=== PATIENT | female | born 1940 | race Caucasian/White ===

== ENCOUNTER → 2017-12-15 | Outpatient (CLI) | payer MEDICARE ==
[~2017-12-15] MED LIST: ASPI81CH PO; ATOR40TA PO; BUPR100 PO; CITA20 PO; HYDCHL25 PO; LEVSOD25 PO; LISHYD2025 PO; METF500 PO; Mobic15 MG PO; POTA10T PO; TOLT2 PO; TOPI25 PO
[2017-12-15 17:57] LABS: Protein, Urine Random 21.6 mg/dL (0.0-11.9)
== END | disposition home or self-care (01) ==
LOC: LAB 17:32 → LAB FUT 12-14 17:55
PROVIDERS: Internal Medicine
DX: N18.2 Chronic kidney disease, stage 2 (mild) (principal); R80.9 Proteinuria, unspecified
CPT/HCPCS: 82570; 84156

== ENCOUNTER → 2018-03-11 | Outpatient (CLI) | payer MEDICARE | END | disposition home or self-care (01) | LOC: PLD 08:13 → LAB SHORT 08:13 | DX: C44.619 Basal cell carcinoma of skin of left upper limb, including shoulder (principal); D04.62 Carcinoma in situ of skin of left upper limb, including shoulder | CPT/HCPCS: 88305 ==

== ENCOUNTER 2018-04-18 17:54 | Emergency (ER) | payer MEDICARE ==
[~2018-04-18] VITALS: Ht 152.4 cm; Wt 90.7 kg
[2018-04-18] MEDS ORDERED: CYAN1000I IM (18:35)
[2018-04-18] MEDS ORDERED: TOPI50 PO (18:47)
[2018-04-18] MEDS ORDERED: LISI20 PO (18:49)
== END 2018-04-18 19:42 | disposition home or self-care (01) ==
LOC: ER 17:54
DX: R94.31 Abnormal electrocardiogram [ECG] [EKG] (principal); E11.40 Type 2 diabetes mellitus with diabetic neuropathy, unspecified; I10 Essential (primary) hypertension; Z88.0 Allergy status to penicillin; Z79.899 Other long term (current) drug therapy; Z79.84 Long term (current) use of oral hypoglycemic drugs
CPT/HCPCS: 93005; 93010; 99283-25

== ENCOUNTER 2018-06-20 17:39 | Emergency (ER) | payer MEDICARE ==
[~2018-06-20] VITALS: Ht 152.4 cm; Wt 86.2 kg
[~2018-06-20 17:39] MED LIST changes: +CYAN1000I IM; -LEVSOD25 PO; +LEVSOD50 PO; +LISI20 PO; +TOPI50 PO
[2018-06-20 18:22] LABS: BASOPHILS ABSOLUTE AUTO 0.06 K/mm3 (0.00-0.23); BASOPHILS PERCENT AUTO 1 % (0-2); EOSINOPHILS ABSOLUTE AUTO 0.25 K/mm3 (0.00-0.68); EOSINOPHILS PERCENT AUTO 3 % (0-6); Hematocrit 42.7 % (33.0-51.0); Hemoglobin 14.2 g/dL (11.5-16.0); IMMATURE GRAN ABSOLUTE AUTO 0.02 K/mm3 (0.00-0.10); IMMATURE GRAN PERCENT AUTO 0 % (0-1); LYMPHOCYTES ABSOLUTE AUTO 1.46 K/mm3 (0.84-5.20); LYMPHOCYTES PERCENT AUTO 19 % (21-46); MONOCYTES ABSOLUTE AUTO 0.55 K/mm3 (0.16-1.47); MONOCYTES PERCENT AUTO 7 % (4-13); Mean Corpuscular HGB 30.9 pg (26.0-34.0); Mean Corpuscular HGB Conc 33.3 g/dL (31.5-36.5); Mean Corpuscular Volume 93 fL (80-100); Mean Platelet Volume 9.2 fL (9.1-12.4); NEUTROPHILS ABSOLUTE AUTO 5.33 K/mm3 (1.96-9.15); NEUTROPHILS PERCENT AUTO 69 % (41-73); Platelet Count 304 K/mm3 (150-400); RDW Coefficient Variation 12.9 % (11.7-14.2); Red Blood Cell Count 4.59 M/mm3 (3.80-5.20); White Blood Cell Count 7.67 K/mm3 (4.00-11.30)
[2018-06-20 18:46] LABS: Albumin, Blood 3.5 g/dL (3.4-5.0); Albumin/Globulin Ratio 1.1 (0.8-1.8); Bilirubin, Total 0.5 mg/dL (0.1-1.0); Bun/Creatinine Ratio 17.3 (12.0-20.0); Creatine Kinase MB 7.8 ng/mL (0.0-3.6); Creatine Kinase MB Index 3.2 (0.0-4.0); Creatinine, Blood 1.04 mg/dL (0.40-1.00); Globulin, Blood 3.2 g/dL (2.2-4.0); Potassium, Blood 3.5 mmol/L (3.5-5.5); Total Protein, Blood 6.7 g/dL (6.4-8.2)
[2018-06-20 19:55] LABS: Source, Urine Clean Catch
[2018-06-20 20:01] LABS: Bilirubin, Urine Neg (Neg); Blood, Urine Neg (Neg); Glucose Qualitative, Urine Neg (Neg); Ketones, Urine Neg (Neg); Leukocyte Esterase, Urine 2+ (Neg); Nitrite, Urine Neg (Neg); Protein, Urine Neg (Neg); Urobilinogen, Urine NORM (Normal)
[2018-06-20 20:21] LABS: Appearance, Urine Hazy (Clear); Color, Urine Yellow (P-Yellow)
[2018-06-20 20:23] LABS: Bacteria Mod /hpf; Red Blood Cells, Urine Not Seen /hpf (0-2); Squamous Epithelial Cells Mod /hpf (Few)
[2018-06-20] MEDS ORDERED: Macrobid 100 M100 MG PO (21:09)
== END 2018-06-20 21:45 | disposition home or self-care (01) ==
LOC: ER 17:39
PROVIDERS: Emergency Medicine
DX: N39.0 Urinary tract infection, site not specified (principal); W18.30XA Fall on same level, unspecified, initial encounter; Z88.0 Allergy status to penicillin; Z79.899 Other long term (current) drug therapy; E11.40 Type 2 diabetes mellitus with diabetic neuropathy, unspecified; I10 Essential (primary) hypertension
CPT/HCPCS: 36415; 80053; 81001; 82550; 82553; 85025; 87086; 93005; 93010; 96360; 99284-25; J7030

== ENCOUNTER 2018-06-25 16:28 | Observation (INO) | payer MEDICARE ==
[~2018-06-25] VITALS: Ht 152.4 cm; Wt 85.9 kg
[~2018-06-25 16:28] MED LIST changes: +Macrobid 100 M100 MG PO
[2018-06-25 17:07] LABS: BASOPHILS ABSOLUTE AUTO 0.06 K/mm3 (0.00-0.23); BASOPHILS PERCENT AUTO 1 % (0-2); EOSINOPHILS ABSOLUTE AUTO 0.09 K/mm3 (0.00-0.68); EOSINOPHILS PERCENT AUTO 1 % (0-6); Hematocrit 43.6 % (33.0-51.0); Hemoglobin 14.3 g/dL (11.5-16.0); IMMATURE GRAN ABSOLUTE AUTO 0.03 K/mm3 (0.00-0.10); IMMATURE GRAN PERCENT AUTO 0 % (0-1); LYMPHOCYTES ABSOLUTE AUTO 1.41 K/mm3 (0.84-5.20); LYMPHOCYTES PERCENT AUTO 16 % (21-46); MONOCYTES ABSOLUTE AUTO 0.69 K/mm3 (0.16-1.47); MONOCYTES PERCENT AUTO 8 % (4-13); Mean Corpuscular HGB 30.2 pg (26.0-34.0); Mean Corpuscular HGB Conc 32.8 g/dL (31.5-36.5); Mean Corpuscular Volume 92 fL (80-100); Mean Platelet Volume 9.4 fL (9.1-12.4); NEUTROPHILS ABSOLUTE AUTO 6.67 K/mm3 (1.96-9.15); NEUTROPHILS PERCENT AUTO 75 % (41-73); Platelet Count 286 K/mm3 (150-400); RDW Coefficient Variation 13.1 % (11.7-14.2); RDW Standard Deviation 44.5 fL (35.1-46.3); Red Blood Cell Count 4.73 M/mm3 (3.80-5.20); White Blood Cell Count 8.95 K/mm3 (4.00-11.30)
[2018-06-25 17:27] LABS: Albumin, Blood 3.9 g/dL (3.4-5.0); Albumin/Globulin Ratio 1.1 (0.8-1.8); Bilirubin, Total 0.5 mg/dL (0.1-1.0); Bun/Creatinine Ratio 16.2 (12.0-20.0); Calcium, Blood 9.2 mg/dL (8.5-10.1); Creatinine, Blood 1.17 mg/dL (0.40-1.00); Globulin, Blood 3.4 g/dL (2.2-4.0); Potassium, Blood 3.3 mmol/L (3.5-5.5); Total Protein, Blood 7.3 g/dL (6.4-8.2)
[2018-06-25] MEDS ORDERED: METF500C PO (18:16)
[2018-06-25] MEDS ORDERED: Wellbutrin Sr200 MG PO (18:16)
[2018-06-25] MEDS ORDERED: CITA20 PO (18:17)
[2018-06-25] MEDS ORDERED: Cyclobenzaprine5 MG PO (18:17)
[2018-06-25] MEDS ORDERED: Bupropion Xl150 MG PO (18:17)
[2018-06-25 23:56] LABS: Source, Urine Catheter
[2018-06-25 23:58] LABS: Blood, Urine 1+ (Neg); Glucose Qualitative, Urine Neg (Neg); Ketones, Urine 1+ (Neg); Leukocyte Esterase, Urine 2+ (Neg); Nitrite, Urine Neg (Neg); Protein, Urine 1+ (Neg); Urobilinogen, Urine 1+ (Normal)
[2018-06-25 23:59] LABS: Appearance, Urine Hazy (Clear); Bilirubin, Urine 1+ (Neg); Color, Urine Amber (P-Yellow)
[2018-06-26 00:07] LABS: Bacteria Mod /hpf; Mucus Light (0-Heavy); Squamous Epithelial Cells Few /hpf (Few)
--- NOTE | 2018-06-26 04:48 | NUR ---
*SHIFT SUMMARY* PATIENT ARRIVED TO ROOM FROM ER VIA STRETCHER. PATIENT IS ALERT AND ORIENTED TO TIME AND PLACE. ASSISTED PATIENT TO BSC TO URINATE. PT WAS A HEAVY TWO ASSIST, SHE IS VERY WEAK AND HAS A HARD TIME WITH LITTLE STEPS. BEDPAN IS BE SAFIER UNTIL PT IS ABLE TO WORK WITH PATIENT. PATIENT SLEPT WITH CPAP THROUGHOUT NIGHT AND STATES SHE SLEPT VERY WELL. PATIENT USES CALL LIGHT APPROPRITELY. CLEAN CATCH URINE SAMPLE SENT TO LAB. MED REC NOT COMPLETED, PATIENT WAS NOT SURE OF WHAT MEDICATIONS SHE TAKES AND DAUGHTER HAS MEDICATION LIST. NO NEW CHANGES TO PATIENTS STATUS. CALL LIGHT WITHIN REACH, BED LOWERED AND LOCKED.
[2018-06-26 05:30] LABS: Hemoglobin 12.1 g/dL (11.5-16.0); Mean Corpuscular HGB Conc 32.7 g/dL (31.5-36.5); Mean Corpuscular Volume 92 fL (80-100); Mean Platelet Volume 9.4 fL (9.1-12.4); Platelet Count 228 K/mm3 (150-400); RDW Coefficient Variation 13.1 % (11.7-14.2); RDW Standard Deviation 44.2 fL (35.1-46.3); Red Blood Cell Count 4.04 M/mm3 (3.80-5.20); White Blood Cell Count 8.07 K/mm3 (4.00-11.30)
[2018-06-26 05:46] LABS: Calcium, Blood 8.5 mg/dL (8.5-10.1); Creatinine, Blood 1.07 mg/dL (0.40-1.00); Potassium, Blood 3.5 mmol/L (3.5-5.5)
--- NOTE | 2018-06-26 18:31 | NUR ---
SHIFT SUMMARY PT HAS HAD NO ACUTE CHANGES THIS SHIFT, NO COMPLAINTS OF ANY KIND. PT HAS BEEN UP TO CHAIR T/O SHIFT, WILL CONT TO MONITOR UNTIL REPORT GIVEN TO TAYLOR RN.
--- NOTE | 2018-06-27 05:23 | NUR ---
SHIFT SUMMARY PT A&OX3. DENIES PAIN, N/V, AND SOB. X2 ASSIST WITH FWW TO BSC. WEAK AND UNSTEADY GAIT. CPAP WITH O2 2L ON AT BEDTIME. IVF NS RUNNING. BED ALARM ON FOR SAFETY. CALL LIGHT IN REACH. WILL CONTINUE TO MONITOR.
[2018-06-27 05:44] LABS: Bun/Creatinine Ratio 13.5 (12.0-20.0); Calcium, Blood 8.2 mg/dL (8.5-10.1); Creatinine, Blood 0.97 mg/dL (0.40-1.00)
--- NOTE | 2018-06-27 18:18 | NUR ---
SHIFT SUMMARY PT WORKED WITH OCCUPATIONAL AND PHYSICAL THERAPY THIS SHIFT. MRI WAS DONE THIS AFTERNOON AND WAITING FOR RESULTS. PT HAS HAD NO COMPLAINTS. UP TO BSC 1-2 ASSIST WITH GAIT BELT AND FWW. PT HAS HAD MEALS IN CHAIR. NO C/O PAIN THIS SHIFT. PT UP IN CHAIR, EATING AT THIS TIME. CHAIR ALARM IN PLACE. CALL LIGHT IN REACH. WILL CONTINUE TO MONITOR AND REPORT TO ONCOMING RN.
--- NOTE | 2018-06-28 04:24 | NUR ---
SHIFT SUMMARY PT ALERT AND ORIENTED BUT FORGETFUL AT TIMES. DENIES PAIN, N/V, AND SOB. X1 ASSIST WITH FWW TO THE BSC. WEAK GAIT AND NEED LOTS OF CUES WHEN GETTING TO THE BSC AND BACK TO BED. CPAP ON WITH O2 2L AT BEDTIME. CONT BIOX IN PLACE. SLEPT WELL. WILL CONTINUE TO MONITOR. BED ALARM ON FOR SAFETY.
[2018-06-28] MEDS ORDERED: DOCU100 PO (14:43)
[2018-06-28] MEDS ORDERED: TRAM50 PO (14:43)
--- NOTE | 2018-06-28 16:21 | NUR ---
REVIEW D'C W/PATIENT AND CAREGIVER. AWARE TO CHIEF OPERATOR RX AT [facility] AND HAS HARD COPY TO FILL. AWARE TO MAKE APPT W/DR. HARDY AND DR. PAYNE. ADVISED THAT DR. PAYNE CAN EXPLAIN MRI THAT WAS DONE YESTERDAY AND IF SHE CAN DO SURGERY TO CORRECT ANYTHING. AWARE CHAIR CAR DRIVER WILL CALL AND LET THEM KNOW WHICH [facility] WILL SEE THEM. ANSWER ALL QUESTIONS. ASSISTED IN DRESSING. IN W/C. RN TAKES PATIENT DOWN TO CAR WITH CAREGIVER.
== END 2018-06-28 16:14 | disposition home or self-care (01) ==
LOC: ER 16:28 → MEDS 20:42
PROVIDERS: Hospitalist; Nurse Practitioner Acute Care; Physician Assistant; ADMIT Internal Medicine
DX: M47.816 Spondylosis without myelopathy or radiculopathy, lumbar region (principal); M48.56XA Collapsed vertebra, not elsewhere classified, lumbar region, initial encounter for fracture; M48.05 Spinal stenosis, thoracolumbar region; M48.061 Spinal stenosis, lumbar region without neurogenic claudication; E11.9 Type 2 diabetes mellitus without complications; G47.33 Obstructive sleep apnea (adult) (pediatric); I10 Essential (primary) hypertension; N32.81 Overactive bladder; E66.9 Obesity, unspecified; E11.42 Type 2 diabetes mellitus with diabetic polyneuropathy; F32.9 Major depressive disorder, single episode, unspecified; F41.9 Anxiety disorder, unspecified; E87.6 Hypokalemia; Z79.01 Long term (current) use of anticoagulants; Z79.899 Other long term (current) drug therapy; Z99.89 Dependence on other enabling machines and devices; Z88.0 Allergy status to penicillin; Z68.36 Body mass index [BMI] 36.0-36.9, adult; Z23 Encounter for immunization
CPT/HCPCS: 36415; 71046; 72100; 72148; 80048; 80053; 81001; 82550; 82947; 85025; 85027; 85651; 86141; 87086; 87147; 90686; 93005; 93010; 94660; 94762; 96360; 96361; 96372; 97110; 97162; 97166; 97530; 97535; 99285-25; G0008; G0378; G8987; G8988; J1650; J7030

== ENCOUNTER → 2019-08-05 | Outpatient (CLI) | payer MEDICARE ==
[~2019-08-05] MED LIST changes: +Bupropion Xl150 MG PO; +Cyclobenzaprine5 MG PO; +DOCU100 PO; +METF500C PO; +TRAM50 PO; +Wellbutrin Sr200 MG PO
== END | disposition home or self-care (01) ==
LOC: PLD 08:14 → LAB SHORT 08:14
DX: D48.5 Neoplasm of uncertain behavior of skin (principal)
CPT/HCPCS: 88305

== ENCOUNTER → 2020-03-22 | Outpatient (CLI) | payer MEDICARE | END | disposition home or self-care (01) | LOC: LAB SHORT 07:44 → PLD 07:44 | DX: D04.62 Carcinoma in situ of skin of left upper limb, including shoulder (principal) | CPT/HCPCS: 88305 ==

== ENCOUNTER → 2020-08-03 | Outpatient (CLI) | payer MEDICARE ==
[2020-08-03 15:11] LABS: Protein, Urine Random 5.3 mg/dL (0.0-11.9); Protein/Creat Ratio, Ur Random 0.3
== END | disposition home or self-care (01) ==
LOC: LAB EV 10:30 → LAB SHORT 10:30
PROVIDERS: Internal Medicine
DX: N18.30 Chronic kidney disease, stage 3 unspecified (principal)
CPT/HCPCS: 82570; 84156

== ENCOUNTER → 2020-12-14 | Outpatient (CLI) | payer MEDICARE | LOC: LAB SHORT 08:13 → LAB 08:13 | DX: C44.619 Basal cell carcinoma of skin of left upper limb, including shoulder (principal); Z88.0 Allergy status to penicillin | CPT/HCPCS: 88305 ==